=== PATIENT | female | born 1985 ===

== ENCOUNTER → 2018-08-14 | Outpatient (CLI) | payer OTHER ==
--- NOTE | 2018-08-14 16:15 | Diagnostic Imaging Report ---
PROCEDURE: US Renal Bilateral. TECHNIQUE: Multiple real-time grayscale images were obtained over the kidneys in various projections bilaterally. INDICATION: Bilateral flank pain. FINDINGS: Right kidney measures 9.9 x 4.5 x 4.1 cm and the left kidney measures 9.3 x 4.3 x 4.5 cm. Cortical thickness and echogenicity is normal bilaterally. No calculi or hydronephrosis is seen. Bilateral ureteral jets were visualized in the bladder. IMPRESSION: Unremarkable renal ultrasound. Dictated by: Dictated on workstation # [id number]
== END ==
LOC: RAD 14:45
PROVIDERS: ATTEND Nurse Practitioner Family
DX: R10.9 Unspecified abdominal pain (principal)
CPT/HCPCS: 76770